=== PATIENT | male | born 1950 | race Caucasian/White ===

== ENCOUNTER 2016-11-04 08:59 | Day surgery (SDC) | payer OTHER ==
[~2016-11-04] VITALS: Ht 182.9 cm; Wt 95.6 kg
[~2016-11-04 08:59] MED LIST: ADIPEX-P37.5 MG PO; ANDROGEL1.62% TP; ASPIRIN 81M81 MG/TA2 PO; AVODART 0.5MG0.5 MG PO; BREO IH; CIPRO 500MG TA500 MG PO; COMBIRESP IH; COMBIVENT INH14.7 GM IH; CRESTOR 10MG10 MG PO; CRESTOR5 MG PO; CYMBALTA 60MG60 MG PO; DALIRESP500 MCG PO; FERROUS SULFATE27 MG PO; FLONASE NASAL S16 GM NS; GLUCOPHAGE850 MG/TAB PO; GLUCOTROL 5M5 MG/TAB PO; HYTRIN5 MG PO; IRON65 M1 PO; JANUVIA 100MG100 MG PO; KLONOPIN 1MG1 MG PO; LAMICTAL150 MG PO; LAMICTAL200 MG PO; LEVAQUIN 750MG750 M1 PO; LEVITRA10 MG PO; MAG-OX 400400 MG/TAB PO; MAGNESIUM OXID500 MG PO; MIRAPEX0.25 MG PO; MULTIPLE VITAMI1 CAP PO; MYRBETR50MG PO; NAPROXEN 3375 MG/TAB PO; NEURONTIN300 MG/CAP PO; PREDNISONE 5MG5 MG PO; PREDNISONE20 MG PO; PROTONIX 40MG T40 MG PO; STIOLTO RESPIMAT4 GM IH; TUDORZA IH; ULTRAM 50MG TAB50 MG PO; ZANAFLEX CAPSULE4 MG PO
[2016-11-04 09:50] VITALS: BP 141/87; PULSE 82; TEMP 97.8
[2016-11-04 10:45] VITALS: BP 130/74; PULSE 85; TEMP 97.2
[2016-11-04 11:00] VITALS: BP 120/69; PULSE 92
[2016-11-04 11:15] VITALS: BP 125/83; PULSE 86
[2016-11-04 11:30] VITALS: BP 112/73; PULSE 91
[2016-11-04 12:00] VITALS: BP 117/69; PULSE 86
== END 2016-11-04 12:28 | disposition home or self-care (01) ==
LOC: SDCO 08:59
DX: R05 Cough (principal); R06.02 Shortness of breath; F17.210 Nicotine dependence, cigarettes, uncomplicated; J44.9 Chronic obstructive pulmonary disease, unspecified; G47.30 Sleep apnea, unspecified; E11.9 Type 2 diabetes mellitus without complications
CPT/HCPCS: J0456; J2704; J2920; J7030; J7050

== ENCOUNTER → 2016-12-15 | Outpatient (CLI) | payer OTHER | LOC: BHSO 12:57 | DX: F33.42 Major depressive disorder, recurrent, in full remission (principal) ==

== ENCOUNTER → 2017-06-15 | Outpatient (CLI) | payer MEDICARE, OTHER | LOC: BHSO 13:01 | DX: F41.1 Generalized anxiety disorder (principal) ==

== ENCOUNTER 2019-03-09 18:47 | Emergency (ER) | payer MEDICARE, OTHER ==
[~2019-03-09] VITALS: Ht 182.9 cm; Wt 89.5 kg
[2019-03-09 20:10] LABS: ALANINE AMINOTRANSFERASE 35 U/L (21-72); ALBUMIN 3.8 gm/dL (3.5-5.0); ALKALINE PHOSPHATASE 80 U/L (50-136); ANION GAP 8 mmol/L (7-16); AST,SGOT 36 U/L (15-37); BILIRUBIN,TOTAL 0.6 mg/dL (0.0-1.0); BLOOD UREA NITROGEN 10 mg/dL (9-20); CALCIUM 8.9 mg/dL (8.4-10.2); CARBON DIOXIDE 25 mmol/L (22-30); CHLORIDE 107 mmol/L (98-107); CREATININE, serum 0.72 (0.66-1.25); GLUCOSE 120 mg/dL (74-106); POTASSIUM 3.8 mmol/L (3.4-5.0); SODIUM 140 mmol/L (137-145); TOTAL PROTEIN 6.8 gm/dL (6.4-8.2)
[2019-03-09 20:13] LABS: PROTHROMBIN TIME 11.8 SECONDS (9.7-12.8)
[2019-03-09 20:14] LABS: BASO % 0.3 % (0.0-2.0); EOS # 0.3 (0.0-0.7); GRAN # 7.5 (1.4-6.5); GRAN % 69.6 % (42.2-75.2); HEMATOCRIT 46.8 % (42.0-52.0); HEMOGLOBIN 15.4 g/dl (13.5-18.0); LYMPH # 2.1 (1.2-3.4); MEAN CELL VOLUME 98 fl (80.0-100.0); MEAN CORPUSCULAR HEMOGLOBIN 32 pg (27.0-31.0); MEAN CORPUSCULAR HGB CONC 33 g/dl (33.0-37.0); MEAN PLATELET VOLUME 10.7 fl (7.4-10.4); MONO # 0.8 (0.1-0.6); MONO % 7.5 % (1.7-9.3); PLATELET COUNT 189 K/mm3 (130-400); RED BLOOD COUNT 4.77 M/mm3 (4.20-5.60); REDCELL DISTRIBUTION WIDTH-CV 12.2 % (11.5-14.5)
[2019-03-09 20:22] LABS: TROPONIN-I < 0.012 ng/mL (0.000-0.035)
[2019-03-09] MEDS ORDERED: NORCO 325 MG-51 TAB PO (20:47)
[2019-03-09] MEDS ORDERED: FLEXERIL 1010 MG/TAB PO (20:47)
[2019-03-09] MEDS ORDERED: WALKER MC (20:48)
[2019-03-09 21:45] VITALS: BP 127/91; PULSE 93
== END 2019-03-09 21:45 | disposition home or self-care (01) ==
LOC: COL.ER 18:47
PROVIDERS: Emergency Medicine
DX: S82.831A Other fracture of upper and lower end of right fibula, initial encounter for closed fracture (principal); S20.212A Contusion of left front wall of thorax, initial encounter; S60.511A Abrasion of right hand, initial encounter; J44.9 Chronic obstructive pulmonary disease, unspecified; E78.5 Hyperlipidemia, unspecified; E11.9 Type 2 diabetes mellitus without complications; F17.210 Nicotine dependence, cigarettes, uncomplicated; Z79.82 Long term (current) use of aspirin; Z79.84 Long term (current) use of oral hypoglycemic drugs; V49.9XXA Car occupant (driver) (passenger) injured in unspecified traffic accident, initial encounter
CPT/HCPCS: J3010

== ENCOUNTER 2021-07-02 14:15 | Outpatient (RCR) | payer MEDICARE, OTHER ==
[~2021-07-02 14:15] MED LIST changes: +FLEXERIL 1010 MG/TAB PO; +NORCO 325 MG-51 TAB PO; +WALKER MC
== END 2021-09-03 | disposition home or self-care (01) ==
LOC: WSPT
DX: G90.521 Complex regional pain syndrome I of right lower limb (principal)

== ENCOUNTER → 2021-09-29 | Outpatient (CLI) | payer MEDICARE, OTHER | LOC: COL.RAD 13:23 | DX: Z12.2 Encounter for screening for malignant neoplasm of respiratory organs (principal); J43.2 Centrilobular emphysema ==

== ENCOUNTER 2023-01-08 12:45 | Outpatient (RCR) | payer MEDICARE, OTHER ==
[~2023-01-08 12:45] MED LIST changes: +ANDROGEL1% TOP; +GLUCOPHAGE1000 MG PO; +IPRATROPIUM BROM3 M1 IH; +NORCO 325 MG-101 TAB PO; +TRELEGY ELLIPT1 EACH IH; +ZITHROMAX 250M250 MG PO
== END 2023-01-10 | disposition home or self-care (01) ==
LOC: MKS.ESL.PT
DX: M72.2 Plantar fascial fibromatosis (principal); Z98.1 Arthrodesis status